=== PATIENT | female | born 1945 | race American Indian/Alaskan Native ===

== ENCOUNTER 2021-04-16 06:25 | Day surgery (SDC) | payer MEDICARE ==
[2021-04-13 11:52] LABS: BUN/Creatinine Ratio 23; Blood Urea Nitrogen 21 mg/dL (7-17); Calcium 9.2 mg/dL (8.4-10.2); Hematocrit 35.7 % (30.3-42.9); Hemoglobin 11.1 gm/dl (10.1-14.3); Hemolysis Index 8; Mean Corpuscular HGB Conc 31 % (30-34); Platelet Count 221 K/mm3 (140-440); Red Blood Count 5.11 M/mm3 (3.65-5.03); Red Cell Distribution Width 18.1 % (13.2-15.2)
[2021-04-13 12:12] LABS: Mean Corpuscular Volume 70 fl (79-97)
[~2021-04-16 06:25] MED LIST: LACTATED RINGERS 1,000 ML IV SCH
[2021-04-16] MEDS ORDERED: BACTERIOSTATIC SODIUM CHLORIDE 0.9% 30 ML VIAL INFILTRATI ONE (06:54)
--- NOTE | 2021-04-16 07:14 | Anesthesia Consultation ---
Anesthesia Consult and Med Hx Date of service: 04/16/21 - Airway Anesthetic Teeth Evaluation: Good ROM Head & Neck: Adequate Mental/Hyoid Distance: Adequate Mallampati Class: Class III Intubation Access Assessment: Good - Pulmonary Exam CTA: Yes - Cardiac Exam Cardiac Exam: RRR - Pre-Operative Health Status ASA Pre-Surgery Classification: ASA3 Proposed Anesthetic Plan: General - Pulmonary Hx Smoking: Yes (STOPPED X 30 YRS) Hx Asthma: Yes (INHALER PRN) COPD: Yes Hx Sleep Apnea: Yes (DX SLEEP APNEA , NO CPAP USE) - Cardiovascular System Hx Hypertension: Yes (X 20 YRS) - Central Nervous System Hx Back Pain: Yes Hx Psychiatric Problems: No - Endocrine Hx Non-Insulin Dependent Diabetes: Yes Hx Hypothyroidism: Yes (DAILY MEDS) - Hematic Hx Anemia: No - Other Systems Hx Cancer: No Hx Obesity: Yes
--- NOTE | 2021-04-16 07:15 | Anesthesia Day of Surgery ---
Anesthesia Day of Surgery - Day of Surgery Patient Examined: Yes Patient H&P Reviewed: Yes Patient is NPO: Yes Beta Blockers: Yes Cardiac Clearance: Yes (- echo, ef 85%)
[2021-04-16] MEDS ORDERED: oxyCODONE /ACETAMINOPHEN 5-325MG TAB PO PRN ×2 (07:20→12:15)
[2021-04-16] MEDS ORDERED: HYDROmorphone 1 MG/1 ML INJ IV PRN (07:20)
[2021-04-16] MEDS ORDERED: ONDANSETRON 4 MG/2 ML INJ IV PRN (07:20)
[2021-04-16] MEDS ORDERED: MIDAZOLAM 2 MG/2 ML INJ ONE (07:39)
[2021-04-16] MEDS ORDERED: fentaNYL 100 MCG/2 ML INJ ONE (07:39)
[2021-04-16] MEDS ORDERED: SUCCINYLCHOLINE CHLORIDE 200 MG/10 ML INJ MDV ONE (07:39)
[2021-04-16] MEDS ORDERED: propofoL 200 MG/20 ML VIAL IV ONE (07:39)
[2021-04-16] MEDS ORDERED: LIDOCAINE (1%) 10 MG/1 ML VIAL 20 ML MDV ONE (07:56)
[2021-04-16] MEDS ORDERED: BUPIVACAINE/PF (0.25%) 2.5 MG/ML 30 ML VIAL INFILTRATI ONE (07:56)
[2021-04-16] MEDS ORDERED: VANCOMYCIN 1000 MG INJ ONE (07:57)
[2021-04-16] MEDS ORDERED: THROMBIN (RECOMBINANT) 5,000 UNIT VIAL TP ONE (07:57)
[2021-04-16] MEDS ORDERED: ceFAZolin/STERILE WATER 2 GM/20 ML SYRINGE IV NR (08:00)
[2021-04-16] MEDS ORDERED: ePHEDrine SULFATE 50 MG/1 ML INJ ONE (08:39)
[2021-04-16] MEDS ORDERED: BUPIVACAINE/PF (0.5%) 5 MG/1 ML 30 ML VIAL INFILTRATI ONE (09:53)
[2021-04-16] MEDS ORDERED: LIDOCAINE (1%) 10 MG/1 ML VIAL 20 ML MDV INFILTRATI ONE (09:54)
[2021-04-16] MEDS ORDERED: VANCOMYCIN 1,000 MG/20 ML IV ONE (09:58)
[2021-04-16] MEDS ORDERED: KETAMINE/STERILE WATER 50 MG/ML SYRINGE ONE (10:01)
[2021-04-16] MEDS ORDERED: NEOSTIGMINE 10MG/10 ML INJ MDV ONE (10:23)
[2021-04-16] MEDS ORDERED: GLYCOPYRROLATE 0.4 MG/2 ML INJ ONE (10:23)
[2021-04-16] MEDS ORDERED: BACITRACIN ZINC OINT 28.4 GM TP ONE (10:35)
--- NOTE | 2021-04-16 11:02 | Post Operative Note ---
Pre-op diagnosis: Failed Back syndrome Post-op diagnosis: same Findings: T11 laminectomy for placement of spinal cord stimulator Procedure: T11 Laminectomy for placement of spinal cord stimulator Anesthesia: GETA Surgeon: DIANA SWAIN II Estimated blood loss: 50-100ml Pathology: none Condition: stable Disposition: PACU
--- NOTE | 2021-04-16 14:28 | XRay Report ---
INTRAOPERATIVE FLUOROSCOPY: SPINE INDICATION / CLINICAL INFORMATION: DORSAL COLUMN STIMULATOR IMPLANT. TECHNIQUE: Intraoperative spot images were obtained during the procedure. FINDINGS: Interval placement a direct dorsal column stimulator device. Fluoroscopy Time: 12 second. Fluoroscopy Images: 1. Signer Name: James Carl DO Signed: 04/16/2021 2:24 PM Workstation Name: [id number]
--- NOTE | 2021-04-16 14:50 | Post Anesthesia Evaluation ---
- Post Anesthesia Evaluation Patient Participated: Yes Airway Patent: Yes Stable Respiratory Function: Yes Nausea/Vomiting: No Temp > 96.8F: Yes Pain Manageable: Yes Adequeate Hydration: Yes Anesthesia Complications: No
[2021-04-17 01:09] VITALS: BP 149/57
--- NOTE | 2021-04-17 13:07 | Operative Report ---
DATE OF SURGERY: 04/16/2021 PREOPERATIVE DIAGNOSIS: Lumbosacral radiculitis. POSTOPERATIVE DIAGNOSIS: Lumbosacral radiculitis. PROCEDURES PERFORMED: 1. T11 laminectomy for placement of spinal cord stimulator paddle (Medtronic). 2. Use of intraoperative neuromonitoring. SURGEON: Amol Perez II, MD PARACHUTE PACKER: None. ANESTHESIA: General endotracheal anesthesia. BLOOD LOSS: 50 mL FINDINGS: T11 laminectomy for placement of dorsal epidural spinal cord stimulator paddle. Impedances was checked and confirmed. COMPLICATIONS: None apparent. DISPOSITION: Stable, extubated to the recovery unit. HISTORY OF PRESENT ILLNESS: Kia Salazar is a 75-year-old female with a history of chronic low back pain and lumbosacral radiculitis. She presented to my clinic for consideration for permanent spinal cord stimulator implant placement after a successful trial. I reviewed her medical history as well as her imaging findings in detail. I recommended permanent spinal cord stimulator implantation. I reviewed all pertinent risks, benefits, and potential complications of the operation. Ms. Salazar agreed to proceed. DETAILS OF THE OPERATION: The patient was brought to the operating room by Anesthesia. She was intubated without difficulty. She was positioned prone on a Missael frame. Please note that all pressure points were padded to prevent peripheral nerve injury. Her eyes were lubricated and taped shut to prevent corneal abrasion. The thoracic and lumbar spine were prepped and draped in the usual sterile fashion. AP fluoroscopy was utilized to determine the location of the T11 lamina. A midline incision was planned and a right generator site was also planned. The midline incision was infiltrated with 1% lidocaine. The incision was opened with a #10 scalpel blade. Further dissection was performed with the electrosurgical generator of Chance Perea. The T11 Spinous process lamina were exposed in a subperiosteal fashion. Self-retaining retractors were utilized to maintain the exposure. The T11 spinous process was removed with a Leksell rongeur. Using a 6 mm patricia mariana, the inferior T11 lamina was removed to expose the dorsal ligamentum flavum. The ligamentum flavum was gently dissected to enter the dorsal epidural space. The ligamentum flavum was removed with 2-0 and 3-0 Kerrison rongeurs. A Ingham elevator was passed superiorly under the remaining T11 lamina to ensure there was no further resistance or obstruction prior to lead placement.. Next, the Medtronic dorsal spinal cord stimulator paddle was inserted into the dorsal epidural space without resistance. AP fluoroscopy was utilized to confirm the accurate placement and location of the implant, which matched perfectly with the trial images. Next, the right-sided generator pocket was then infiltrated with lidocaine and opened with a #10 scalpel blade. Further dissection was performed with the electrosurgical generator of Chance Perea. A small pocket was created in preparation for generator placement. Next, the leads were tunneled to the generator site. The extensions were secured to the T11-T12 interspinous ligament using a 2-0 silk tie. The extensions were connected to the generator. All impedances were checked and confirmed. The generator was placed into the pocket and the soft tissues were copiously irrigated with saline. Vancomycin powder was sprinkled throughout both incisions. Finally, attention was directed to closure. In the midline incision, the muscle and fascia were closed with 2-0 polyglactin synthetic absorbable suture. The dermis was closed with 2-0 polyglactin synthetic absorbable suture in an inverted fashion. The skin was reapproximated with rachel. In the right lower lumbar generator site, the generator pocket was closed with 2-0 polyglactin synthetic absorbable suture. The dermis was closed with 2-0 polyglactin synthetic absorbable suture in an inverted fashion. The skin was reapproximated with rachel. Please note that all needle counts, sponge counts and instrument counts were correct at the end of the case x2. There were no neuromonitoring changes throughout the duration of the operation. The patient appeared to tolerate the operation well without any complication. She was returned to anesthesia where she was extubated without delay. She was transferred to the PACU in stable condition. There were no immediate complications apparent. TID: [id number] RECEIPT: [id number] GLORIA/HELLEN/HENRRY BARRON
== END 2021-04-16 12:55 | disposition home or self-care (01) ==
LOC: OR 06:25
PROVIDERS: ATTEND Psychiatry & Neurology Neurology
DX: M54.17 Radiculopathy, lumbosacral region (principal); J44.9 Chronic obstructive pulmonary disease, unspecified; G47.30 Sleep apnea, unspecified; M19.90 Unspecified osteoarthritis, unspecified site; I10 Essential (primary) hypertension; E11.9 Type 2 diabetes mellitus without complications; E03.9 Hypothyroidism, unspecified; E66.9 Obesity, unspecified; Z87.891 Personal history of nicotine dependence; Z79.84 Long term (current) use of oral hypoglycemic drugs; Z79.899 Other long term (current) drug therapy; Z98.51 Tubal ligation status; Z98.890 Other specified postprocedural states; Z68.41 Body mass index [BMI] 40.0-44.9, adult; Z20.822 Contact with and (suspected) exposure to COVID-19
CPT/HCPCS: 36415; 63655; 72020; 80048; 82962; 85027; C1820; J0330; J0690; J2250; J2704; J2710; J3010; J3370; J3490; J7120; U0003

== ENCOUNTER 2021-12-02 08:41 | Day surgery (SDC) | payer MEDICARE ==
[2021-12-01 11:54] LABS: Mean Corpuscular HGB Conc 30 % (30-34); Platelet Count 222 K/mm3 (140-440); Red Blood Count 5.11 M/mm3 (3.65-5.03); Red Cell Distribution Width 18.4 % (13.2-15.2)
[2021-12-01 12:09] LABS: Hematocrit 34.4 % (30.3-42.9); Hemoglobin 10.4 gm/dl (10.1-14.3); Mean Corpuscular Volume 67 fl (79-97)
[2021-12-01 12:29] LABS: Calcium 9.4 mg/dL (8.4-10.2)
[~2021-12-02 08:41] MED LIST changes: -LACTATED RINGERS 1,000 ML IV SCH; +ceFAZolin/Water 2 GM/20 ML 2 GM/20 ML SYRINGE IV NR
[2021-12-02] MEDS ORDERED: LACTATED RINGERS 1,000 ML ONE (09:01)
--- NOTE | 2021-12-02 09:54 | Anesthesia Day of Surgery ---
Anesthesia Day of Surgery - Day of Surgery Patient Examined: Yes Patient H&P Reviewed: Yes Patient is NPO: Yes Cardiac Clearance: Yes
--- NOTE | 2021-12-02 09:58 | Anesthesia Consultation ---
Anesthesia Consult and Med Hx Date of service: 12/02/21 - Airway Anesthetic Teeth Evaluation: Dentures, Edentulous ROM Head & Neck: Adequate Mental/Hyoid Distance: Adequate Mallampati Class: Class II Intubation Access Assessment: Good - Pre-Operative Health Status ASA Pre-Surgery Classification: ASA3 Proposed Anesthetic Plan: General - Pulmonary Hx Smoking: Yes (STOPPED X 30 YRS) Hx Asthma: Yes (INHALER PRN) SOB: Yes (SOB WITH ACTIVITY) COPD: Yes Hx Sleep Apnea: Yes (DX SLEEP APNEA , NO CPAP USE) - Cardiovascular System Hx Hypertension: Yes (X 21 YRS) Hx Heart Attack/AMI: (UNSURE) Hx Valvular Heart Disease: Yes (MVP) Hx Peripheral Vascular Disease: Yes (EDEMA JAY JAY ANKLES , LEFT SIDE WORSE) - Central Nervous System Hx Neuromuscular Disorder: Yes (Neuropathy) Hx Back Pain: Yes (TO RIGHT LEG) Hx Psychiatric Problems: No - Endocrine Hx Renal Disease: Yes (CKD) Hx Non-Insulin Dependent Diabetes: Yes Hx Thyroid Disease: Yes Hx Hypothyroidism: Yes (DAILY MEDS) - Hematic Hx Anemia: Yes (NOT RECENT) - Other Systems Hx Cancer: No Hx Obesity: Yes - Additional Comments Anesthesia Medical History Comments: Patient was here [id number] for back surgery. [id number] ECHO 60-65% EF. [id number] Negative NSt
[2021-12-02] MEDS ORDERED: MIDAZOLAM 2 MG/2 ML INJ IV NR (10:00)
[2021-12-02] MEDS ORDERED: LACTATED RINGERS 1,000 ML IV SCH (10:00)
[2021-12-02] MEDS ORDERED: HYDROmorphone 1 MG/1 ML INJ IV PRN ×2 (10:30)
[2021-12-02] MEDS ORDERED: ONDANSETRON 4 MG/2 ML INJ IV PRN (10:30)
[2021-12-02] MEDS ORDERED: LIDOCAINE PF 100 MG/5 ML (CARDIAC SYRINGE) IV ONE (11:18)
[2021-12-02] MEDS ORDERED: propofoL 200 MG/20 ML VIAL IV ONE (11:18)
[2021-12-02] MEDS ORDERED: fentaNYL 100 MCG/2 ML INJ ONE (11:18)
[2021-12-02] MEDS ORDERED: ePHEDrine SULFATE 50 MG/1 ML INJ ONE (11:31)
[2021-12-02] MEDS ORDERED: ONDANSETRON 4 MG/2 ML INJ ONE (11:33)
[2021-12-02] MEDS ORDERED: BUPIVACAINE/PF (0.5%) 5 MG/1 ML 30 ML VIAL INFILTRATI ONE ×2 (11:40→11:48)
[2021-12-02] MEDS ORDERED: SODIUM CHLORIDE 0.9% IRR 1,500 ML BOTTLE IR ONE (11:40)
--- NOTE | 2021-12-02 11:58 | Procedure Note ---
Date of procedure: 12/02/21 Pre-op diagnosis: left carpal tunnel syndrome Post-op diagnosis: same Procedure: [Left] endoscopic carpal tunnel release Procedure The patient was brought to the OR placed in the OR table in supine position following induction and intubation anesthesia the patient's [left] upper extremity was prepped and draped in the usual sterile manner a timeout procedure was done to identify the patient and the correct operative site next the arm was exsanguinated followed by inflation of the pneumatic tourniquet to 250 mmHg a volar incision was made at the distal wrist crease this is taken down through skin and subcutaneous using loupe magnification the superficial flexor sheath was identified next the carpal canal was entered using dilators andthe arthroscope was inserted the patient was noted to have some tightness at the carpal canal and the transverse carpal transverse carpal ligament was identified with the arthroscope in line with the fourth metacarpal the knife blade assembly was elevated the ligament was released from distal to proximal care was taken to release the ligament as completely as possible a second look was done and it appeared that the ligament was completely released at this point The wound was irrigated and was closed in a standard routine fashion. Dressings were applied the patient tolerated the procedure there were no complications she was sent to postanesthesia recovery in stable condition Anesthesia: MAC Surgeon: CHERY COLIN (Mandeep Wright, [facility] assist) Estimated blood loss: minimal Pathology: none Condition: stable Disposition: PACU
[2021-12-02] MEDS ORDERED: HYDROcodone/ACETAMINOPHEN 5-325 MG TAB PO PRN (14:30)
--- NOTE | 2021-12-02 14:55 | Post Anesthesia Evaluation ---
- Post Anesthesia Evaluation Patient Participated: Yes Airway Patent: Yes Stable Respiratory Function: Yes Nausea/Vomiting: No Temp > 96.8F: Yes Pain Manageable: Yes Adequeate Hydration: Yes Anesthesia Complications: No Block Receding Appropriately: Not Applicable Patient on Ventilator: No
[2021-12-02 16:16] VITALS: BP 158/66
== END 2021-12-02 14:40 | disposition home or self-care (01) ==
LOC: OR 08:41
PROVIDERS: ATTEND Orthopaedic Surgery
DX: G56.02 Carpal tunnel syndrome, left upper limb (principal); I12.9 Hypertensive chronic kidney disease with stage 1 through stage 4 chronic kidney disease, or unspecified chronic kidney disease; E11.22 Type 2 diabetes mellitus with diabetic chronic kidney disease; N18.9 Chronic kidney disease, unspecified; E11.42 Type 2 diabetes mellitus with diabetic polyneuropathy; E78.00 Pure hypercholesterolemia, unspecified; J44.9 Chronic obstructive pulmonary disease, unspecified; G47.30 Sleep apnea, unspecified; E66.9 Obesity, unspecified; M19.90 Unspecified osteoarthritis, unspecified site; E03.9 Hypothyroidism, unspecified; Z96.641 Presence of right artificial hip joint; Z20.822 Contact with and (suspected) exposure to COVID-19; Z79.899 Other long term (current) drug therapy; Z79.4 Long term (current) use of insulin; Z98.891 History of uterine scar from previous surgery; Z98.51 Tubal ligation status; Z98.890 Other specified postprocedural states; Z68.41 Body mass index [BMI] 40.0-44.9, adult
CPT/HCPCS: 29848; 36415; 80048; 82962; 85027; J1170; J2001; J2405; J2704; J3010; J3490; J7120; U0003